=== PATIENT | female | born 1995 | race Caucasian/White ===

== ENCOUNTER → 2019-03-28 13:56 | Outpatient (CLI) | payer BC, SELFPAY ==
--- NOTE | 2019-03-28 | DI.RAD.S_ITS ---
PROCEDURE: XR CHEST 2V INDICATIONS: POS TB TEST TECHNIQUE: 2 views of the chest were acquired. COMPARISON: None. FINDINGS: Surgical changes and devices: None. Lungs and pleura: Lungs are clear. No pleural effusions or pneumothorax. Mediastinum: Mediastinal contours are normal. Heart size is normal. Bones and chest wall: No suspicious bony abnormalities. Soft tissues appear unremarkable. IMPRESSION: No acute process. No evidence of TB. Dictated by: Fabiola Mayberry M.D. on 03/28/2019 at 13:26 Approved by: Fabiola Mayberry M.D. on 03/28/2019 at 13:27
== END ==
PROVIDERS: PCP Family Medicine; Visit Provider Nurse Practitioner Family
DX: R76.11 Nonspecific reaction to tuberculin skin test without active tuberculosis (principal)
CPT/HCPCS: 71046

== ENCOUNTER → 2021-05-10 09:25 | Outpatient (CLI) | payer BC, SELFPAY ==
[2021-05-16 13:10] LABS: QuantiFERON Mitogen Value >10.00 IU/mL (.); QuantiFERON Nil Value 0.02 IU/mL (.); QuantiFERON TB Gold Plus Negative (Negative); QuantiFERON TB1 Ag Value 0.03 IU/mL (.); QuantiFERON TB2 Ag Value 0.03 IU/mL (.)
[2021-05-17 15:46] LABS: Hepatitis B Surf Ab Qualitativ NON REACTIVE
== END ==
PROVIDERS: PCP Physician Assistant; Visit Provider Physician Assistant
DX: Z02.0 Encounter for examination for admission to educational institution (principal)
CPT/HCPCS: 86480; 86706